=== PATIENT | male | born 1940 | race Caucasian/White ===

== ENCOUNTER → 2018-08-11 | Outpatient (CLI) | payer OTHER ==
[~2018-08-11] VITALS: Ht 375.9 cm; Wt 88.5 kg
[~2018-08-11] MED LIST: AMOXICILLIN/POTASSIU; APAP650 PO; ATORVASTATIN CA20 MG PO; AVAPRO 150 MG150 M1 PO; BENICAR HCT 401 EACH PO; CALCIUM 600 +1 EAC1 PO; CALCIUM CITRAT1 EA17 PO; CENTRUM SILVER1 EAC2 PO; CHOLEST OFF PO; CLONAZEPAM 1 MG1 M1 PO; CO Q-10100 MG PO; COLACE100 MG; FELODIPINE ER10 MG PO; FISH OIL 1,2001 EAC4 PO; FLAXSEED OIL1000 MG PO; FLEXERIL PO; GARLIC OIL1 EAC1 PO; GINKGO BILOBA40 M1 PO; GRAPE SEED25 MG PO; GREEN TEA1 EACH PO; HYDROCHLOROTH12.5 MG PO; HYDROCODON-ACE1 EAC5 PO; IBUPROFEN 800800 M1 PO; MEDROLDOSEPACK PO; MEN'S 50+ DAIL1 EACH PO; NEURONTIN 300300 M1 PO; NEXIUM 40 MG CA40 M1 PO; NORCO 10-325 T1 EACH PO; OXYCONTIN10 M1 PO; PLENDIL10 MG PO; POTASSIUM99 M1 PO; ROBAXIN 750 MG750 M1 PO; SOY50 MG PO; SUPER B COMPLE1 EAC2 PO; TURMERIC500 MG PO; VITAMIN D1000 UNI1 PO
--- NOTE | ~2018-08-11 | HPC ---
[facility] [address] [address] PAIN MANAGEMENT CONSULTATION Name: CARLITO OAKES Room #: REG LUIS Hayden#: [id number] Admission: 08/11/18 ������������������ Attend Phys: Joao Hardin MD Discharge: ������������������ Date of : 40 Report #: [id number] THIS REPORT FOR: //name// CC: Ronaldo Hardin DATE OF SERVICE: 08/11/2018 CHIEF COMPLAINT: Cervical/neck pain. HISTORY OF PRESENT ILLNESS: The patient is a 77-year-old gentleman who has been referred to the pain clinic for evaluation. The patient states that he has pain in the posterior portion of his neck. He denies any trauma. He has noticed that the pain has been a problem since March. He denies any trauma. It involves the right posterior portion of his neck. It starts at the base of his neck and radiates into the occipital area. Notes that the pain waxes and wanes. It is not always there. Today is good day. He is not having any significant pain. Notes that when it is there. It hurts in the posterior portion of his neck, radiates up into the occipital portion. Turning his head from side to side is problematic. He has not had physical therapy. He has seen a chiropractor. States that there were some adjustments made. He did go for 3 occasions. Did not notice a significant amount of improvement. He has tried some pills. He has been seen by a doctor in [place]. He and his spend 6 months in [place], followed by 6 months in [place]. He describes it as a periodic, shooting, aching, intense, sharp, tender pain. Rates it as a 5/10 when it is present. Generally it is at the level of 6 when it is present. ALLERGIES: No known drug allergies. MEDICATIONS: Centrum Silver, CoQ10 100 mg, Lipitor 20 mg, Tylenol Arthritis 650 mg, 10 mg, Plendil ER 10 mg, Benicar 40/12.5, and Nexium 40 mg. PAST MEDICAL HISTORY: Hypertension, stomach problems and ulcers. Atrial fibrillation ablation in 2011, bleeding tendencies. PAST SURGICAL HISTORY: Stomach bleeding, ulcers 1991, back surgery . SOCIAL HISTORY: He is retired, retired in 2006. REVIEW OF SYSTEMS: Generally good health, hearing loss, heart trouble, ablation for atrial fibrillation 2001. LABORATORY DATA: MRI of the cervical spine without contrast dated 08/02/2008 revealed C3-C4, there is a central disk protrusion effacing the ventral thecal sac and ventral spinal cord. The spinal canal is not narrowed measuring 1.2 cm. There is moderate neural foraminal narrowing secondary to uncovertebral joint [facility] [address] [place] [address] PAIN MANAGEMENT CONSULTATION Name: CARLITO OAKES Sona Room #: REG Jeevan Hayden#: [id number] Admission: 08/11/18 ������������������ Attend Phys: Joao Hardin MD Discharge: ������������������ Date of : 40 Report #: [id number] hypertrophy. 1. C4-C5, there is no significant disk bulge. The central spinal canal is not grossly narrowed. There is no evidence of neural foraminal stenosis. 2. C5/C6, there is a disk osteophyte complex. The central spinal canal is not narrowed. There is moderate left facet arthropathy. Left uncovertebral joint osteophyte contributes to moderate left neural foraminal narrowing. 3. C6/C7, there is a broad-based disk bulge. 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 The AP diameter approximately is 9 mm. There is foraminal disk bulging and uncovertebral joint osteophytes. There is a prominent left facet osteophyte. There is moderate to severe left neural foraminal narrowing and moderate right neural foraminal narrowing. 4. C7/T1, there is a posterior osteophyte. The AP diameter and canal measures approximately 7-8 mm. There is accentuated right facet arthropathy. There is moderate right neural foraminal narrowing. PAIN CLINIC ASSESSMENT/PQRS: 1. Osteoarthritis. The patient is not being treated for osteoarthritis. He has had some back surgery. 2. Rheumatoid arthritis. The patient denies rheumatoid arthritis. 3. Height 5 feet 8 inches, weight 195 pounds, BMI is 60. Again, the height was 5 feet 8 inches, weight 195 pounds. 4. Vital signs: Blood pressure 145/68, pulse 56, respiratory rate 16, room air saturation 99%, temperature is not listed. 5. Pain intensity 5/10. 6. Fall history: The patient has not fallen in the last 3 months. 7. Blood thinner. The patient is not on a blood thinning medication. 8. Hypertension. The patient has been treated for hypertension. 9. Opioids greater than 6 weeks. The patient is not on an opioid regimen. 10. Risk assessment tool, low for opioids. 11. Functional assessment tool 35/70. 12. Recreational drug use. The patient denies. 13. Tobacco: The patient is a former smoker. 14. Alcohol: The patient drinks a beer daily. PHYSICAL EXAMINATION: GENERAL: The patient is a well-developed, well-nourished white male. Appears his stated age. He is alert and oriented x 3. His affect is appropriate. Speech is fluent. HEENT: Normocephalic, atraumatic. Extraocular eye muscles intact. Sclerae nonicteric. Mucous membranes are moist. NECK: Without adenopathy or JVD. HEART: Heart sounds, S1, S2. LUNGS: Clear to auscultation. ABDOMEN: Bowel sounds present. EXTREMITIES: Upper extremity muscle strength is judged to be 5/5 in the major muscle groups in the upper extremity. Deep tendon reflexes are trace for the [facility] [address] [place] [address] PAIN MANAGEMENT CONSULTATION Name: VIOLETTECARLITO L Room #: REG [facility]#: [id number] Admission: 08/11/18 ������������������ Attend Phys: Joao Hardin MD Discharge: ������������������ Date of : 40 Report #: [id number] biceps in the upper extremity. Lower extremity muscle strength is judged to be 5/5 for the major muscle groups. Deep tendon reflexes are +3 at the knees and +2 at the ankles. Anterior and posterior spring tests are negative. The patient does have pain and discomfort in the posterior shoulder area. Palpation near the levator scapulae causes some pain and discomfort with pain that radiates up into the right occipital area. Palpation in this area does reproduce pain and discomfort similar to that which he has been experiencing. Overall, he is not having pain and discomfort today. IMPRESSION: 1. Myofascial pain in the right occipital area/occipital neuralgia. 2. Hypertension, stomach problems and ulcers. 3. Atrial fibrillation ablation in 2011, bleeding tendencies. RECOMMENDATIONS: We discussed treatment options with the patient. At this juncture, we will try a conservative approach. The patient will try a Medrol Dosepak in the interim should his pain become more problematic. He is not having pain and discomfort today. I think if his pain should become more problematic. We will have him come to the pain clinic at which time we would then consider an occipital nerve block. We have discussed the patient's MRI with him. We have gone line for line and explanation of the MRI in his findings as well as their meaning. He and his states that they understand. A script for his medications of a Medrol Dosepak 1 p.o. as described in the instructions for the Medrol Dosepak. He will call us should he have any concerns. We would like to thank you for letting us participate in his care. We hope he continues to improve. ��������������������������������������������� ���������������������������������������� By: ��������������������������������������������� [id number] Joao Hardin MD /natalya
[2018-08-11 12:51] VITALS: BP 145/68
--- NOTE | 2018-08-11 13:09 | NUR ---
Pain Clinic Assessment: 1. History of Osteoarthritis: DENIES History of Rheumatoid Arthritis: DENIES 2. Height: 5 ft. 88 in. 375.9 cm. Weight: 195.0 lb. oz. 88.452 kg. Patient's BMI: 6.3 3. Vital Signs: BP: 145/68 Pulse: 56 Resp: 14 Temp: 02 Sat: 99 ECG Mon: 4. Pain Intensity: 5 5. Fall Risk: Dizziness: N Needs help standing or walking: N Fallen in the last 3 months: N Fall risk comments: 6. Patient on Blood Thinner: None 7. History of Hypertension: Y 8. Opioid Therapy greater than 6 weeks: N Opiate Contract Signed: 9. Risk Assessment Tool Provided: 10. Functional Assessment Tool: 11. Recreational Drug Use: Never Drug Type: Tobacco Use: Former Smoker Tobacco Type: Amount or Packs/day: How Many Years: Alcohol Use: Yes Frequency: Daily Quant: BEER
== END ==
LOC: PAIN 07:21
DX: M54.2 Cervicalgia (principal); M79.18 Myalgia, other site; M19.90 Unspecified osteoarthritis, unspecified site; I10 Essential (primary) hypertension; I48.91 Unspecified atrial fibrillation; D68.9 Coagulation defect, unspecified; Z79.01 Long term (current) use of anticoagulants; Z79.891 Long term (current) use of opiate analgesic

== ENCOUNTER → 2018-10-13 | Outpatient (CLI) | payer OTHER ==
[~2018-10-13] VITALS: Ht 172.7 cm; Wt 85.8 kg
--- NOTE | ~2018-10-13 | HPC ---
[facility] [address] [place] [address] PAIN MANAGEMENT CONSULTATION Name: CARLITO OAKSE Room #: REG [facility] SanjayLeeNaimaLee#: [id number] Admission: 10/13/18 ������������������ Attend Phys: Joao Hardin MD Discharge: ������������������ Date of : 40 Report #: [id number] THIS REPORT FOR: //name// CC: Ronaldo Hradin DATE OF SERVICE: 10/13/2018 CHIEF COMPLAINT: Neck pain. HISTORY OF PRESENT ILLNESS: The patient is a 77-year-old gentleman who has been followed in the pain clinic because of pain in the posterior portion of his neck. He has had problems since March. Denies any trauma. Has pain in the right shoulder area and neck area. Start at the base of his neck and continues up to the back of his head. He has seen a chiropractor and has had adjustments in the past. He has a often has been time between [place] and [place]. ALLERGIES: No known drug allergies. CURRENT MEDICATIONS: Centrum Silver, CoQ10 100 mg, Lipitor 20 mg, Tylenol Arthritis 650 mg, Plendil ER 10 mg, Benicar 40/12.5, Nexium 40 mg. PAIN CLINIC ASSESSMENT/PQRS: 1. Osteoarthritis. The patient is not being treated for osteoarthritis. He has had some back surgery in the lumbar area. He is not being treated for rheumatoid arthritis. 2. Height 5 feet 8 inches, weight 189 pounds, BMI is 28.8. 3. VITAL SIGNS: Blood pressure 134/63, pulse 65, respiratory rate 16, room air saturation 97%. 4. Pain intensity 0-10 depending on the activity level. 5. Fall history: The patient has not fallen in the last 3 months. 6. Blood thinner. The patient is not on a blood thinning medication. 7. Hypertension. The patient is being treated for hypertension. 8. Opioid therapy greater than 6 weeks. The patient is not receiving opioids on a regular basis. 9. Risk assessment tool, low. 10. Functional assessment tool 35/70. 11. Recreational drug use. The patient denies. 12. Tobacco: The patient is a former smoker. 13. Alcohol: The patient drinks 1-2 alcoholic beverages weekly. PHYSICAL EXAMINATION: GENERAL: The patient is a well-developed, well-nourished white male. Appears his stated age. He is alert and oriented x 3. His affect is appropriate. Speech is fluent. HEAD, EYES, EARS, NOSE, AND THROAT: Normocephalic, atraumatic. Extraocular eye [address] [address] PAIN MANAGEMENT CONSULTATION Name: CARLITO OAKES Room #: REG [facility]#: [id number] Admission: 10/13/18 ������������������ Attend Phys: Joao Hardin MD Discharge: ������������������ Date of : 40 Report #: [id number] muscles intact. Sclerae nonicteric. Mucous membranes are moist. NECK: Without adenopathy or JVD. The patient has some pain and discomfort in the occipital area on the right side. Palpation in this area does reproduce a component of his pain and discomfort with pain radiating lateral portion of his head. HEART: Regular rate. S1, S2. LUNGS: Clear to auscultation. ABDOMEN: Nontender. EXTREMITIES: Upper extremity muscle strength judged to be 5/5 for the major muscle groups in the upper extremity. Deep tendon reflexes trace in the biceps. Lower extremity muscle strength judged to be 5/5 for the major muscle groups in the lower extremity. IMPRESSION: 1. Myofascial pain/right occipital neuralgia. 2. Hypertension. 3. Stomach problems/ulcers. 4. Atrial fibrillation, status post ablation in 2011. 5. Bleeding tendencies. RECOMMENDATIONS: We discussed treatment options with the patient. At this juncture, he continues to have pain, which is problematic. It involves the right side of his neck in the occipital area. Risks and benefits of an occipital nerve block were discussed with the patient. Possible complications of the procedure, which could include bleeding, increased pain, no improvement in pain, infection were discussed and the patient elects to proceed. PROCEDURE NOTE: The patient was taken to the procedure area. He was then assisted in getting on the examination table. occipital area was sterilely prepped with a chlorhexidine solution and allowed to dry. A 0.25% bupivacaine was infiltrated in the skin wheal and the right occipital area. A 25-gauge needle was then advanced into the area of the greater occipital nerve. Aspiration was negative. A total of 6 mL of 0.5% bupivacaine and 40 mg triamcinolone was injected. The patient's pain was 0 at the time of discharge. He will follow up in the future as needed. We would like to thank you for letting us to participate in his care. We hope he continues to improve. ��������������������������������������������� ���������������������������������������� By: ��������������������������������������������� [id number] Joao Hardin MD /HAILE
[2018-10-13 08:58] VITALS: BP 134/63
--- NOTE | 2018-10-13 09:09 | NUR ---
Pain Clinic Assessment: 1. History of Osteoarthritis: DENIES History of Rheumatoid Arthritis: DENIES 2. Height: 5 ft. 8 in. 172.7 cm. Weight: 189.2 lb. oz. 85.821 kg. Patient's BMI: 28.8 3. Vital Signs: BP: 134/63 Pulse: 65 Resp: 16 Temp: 02 Sat: 97 ECG Mon: 4. Pain Intensity: 0 NOW, 10 WHEN BAD 5. Fall Risk: Dizziness: N Needs help standing or walking: N Fallen in the last 3 months: N Fall risk comments: 6. Patient on Blood Thinner: None 7. History of Hypertension: Y 8. Opioid Therapy greater than 6 weeks: N Opiate Contract Signed: 9. Risk Assessment Tool Provided: LOW 10. Functional Assessment Tool: 35/ 11. Recreational Drug Use: Never Drug Type: Tobacco Use: Former Smoker Tobacco Type: Amount or Packs/day: How Many Years: Alcohol Use: Yes Frequency: Weekly Quant: 1-2
== END | disposition home or self-care (01) ==
LOC: PAIN 06:41
DX: M54.81 Occipital neuralgia (principal); M79.18 Myalgia, other site; I10 Essential (primary) hypertension; K25.9 Gastric ulcer, unspecified as acute or chronic, without hemorrhage or perforation; I48.91 Unspecified atrial fibrillation; D68.9 Coagulation defect, unspecified; M19.90 Unspecified osteoarthritis, unspecified site; Z98.890 Other specified postprocedural states; Z79.899 Other long term (current) drug therapy; Z87.891 Personal history of nicotine dependence

== ENCOUNTER → 2019-08-08 | Outpatient (CLI) | payer OTHER | LOC: SJCVC 13:14 | DX: R00.1 Bradycardia, unspecified (principal); I48.0 Paroxysmal atrial fibrillation; I10 Essential (primary) hypertension; E78.00 Pure hypercholesterolemia, unspecified; K21.9 Gastro-esophageal reflux disease without esophagitis; I35.8 Other nonrheumatic aortic valve disorders; Z82.49 Family history of ischemic heart disease and other diseases of the circulatory system; Z79.899 Other long term (current) drug therapy; Z87.891 Personal history of nicotine dependence ==

== ENCOUNTER → 2020-08-13 | Outpatient (CLI) | payer OTHER | LOC: SJCVC 13:26 | PROVIDERS: ATTEND Internal Medicine Cardiovascular Disease | DX: I35.8 Other nonrheumatic aortic valve disorders (principal); I10 Essential (primary) hypertension; E78.00 Pure hypercholesterolemia, unspecified; Z79.899 Other long term (current) drug therapy; K21.9 Gastro-esophageal reflux disease without esophagitis; Z90.49 Acquired absence of other specified parts of digestive tract; Z88.8 Allergy status to other drugs, medicaments and biological substances; I48.0 Paroxysmal atrial fibrillation; Z87.891 Personal history of nicotine dependence; Z82.49 Family history of ischemic heart disease and other diseases of the circulatory system ==

== ENCOUNTER → 2021-01-30 | Outpatient (CLI) | payer OTHER | LOC: SJCVCIMAG 07:53 | PROVIDERS: ATTEND Internal Medicine Cardiovascular Disease | DX: I10 Essential (primary) hypertension (principal); E78.5 Hyperlipidemia, unspecified; R07.9 Chest pain, unspecified; K21.9 Gastro-esophageal reflux disease without esophagitis; E78.00 Pure hypercholesterolemia, unspecified; I25.10 Atherosclerotic heart disease of native coronary artery without angina pectoris; I73.9 Peripheral vascular disease, unspecified; G47.33 Obstructive sleep apnea (adult) (pediatric); Z82.49 Family history of ischemic heart disease and other diseases of the circulatory system; Z88.8 Allergy status to other drugs, medicaments and biological substances; Z79.899 Other long term (current) drug therapy; Z72.89 Other problems related to lifestyle; Z87.891 Personal history of nicotine dependence ==